=== PATIENT | female | born 1995 | race Caucasian/White ===

== ENCOUNTER 2019-06-22 13:43 | Emergency (ER) | payer OTHER ==
[~2019-06-22] VITALS: Ht 165.1 cm; Wt 77.1 kg
[2019-06-22] MEDS ORDERED: ATIVAN1 MG (13:59)
[2019-06-22] MEDS ORDERED: WELLBUTRIN SR150 MG (13:59)
[2019-06-22] MEDS ORDERED: ADDERALL 20 MG20 MG (14:00)
== END 2019-06-22 21:06 | disposition home or self-care (01) ==
LOC: ER 13:43
DX: K29.70 Gastritis, unspecified, without bleeding (principal); K52.9 Noninfective gastroenteritis and colitis, unspecified; E86.0 Dehydration